=== PATIENT | female | born 1990 | race Caucasian/White ===

== ENCOUNTER → 2016-07-09 | Outpatient (CLI) | payer OTHER ==
[~2016-07-09] MED LIST: ANUSOL1 EACH PO; BACTRIM DS 8001 TA1 PO; CIPRO500 MG PO; Fioricet 325 MG1 TAB PO; IBU-6600 MG PO; KEFLEX500 MG PO; MULTIPLE VITAMI1 CAP PO; NKHM; VICODIN 5/500 505 MG PO
[2016-07-09 11:42] LABS: HEMATOCRIT 38.6 % (37.0-47.0); HEMOGLOBIN 12.7 g/dl (12.0-16.0); MEAN CELL VOLUME 90.6 fl (81.0-99.0); MEAN CORPUSCULAR HGB 29.8 pg (27.0-31.0); MEAN CORPUSCULAR HGB CONC 32.9 g/dl (33.0-37.0); MEAN PLATELET VOLUME 10.5 fl (9.6-12.3); RED BLOOD COUNT 4.26 10*6/uL (4.10-5.10); RED CELL DISTRI WIDTH 12.1 % (0-14.5); WHITE BLOOD COUNT 4.7 10*3/uL (4.8-10.8)
[2016-07-09 12:19] LABS: ALBUMIN 4.2 gm/dl (3.1-4.5); ALKALINE PHOSPHATASE 78 U/L (45-117); BILIRUBIN, TOTAL 0.5 mg/dl (0.2-1.0); BUN 11 mg/dl (7-24); CARBON DIOXIDE 31 mmol/L (21-32); CHLORIDE 104 mmol/L (98-107); CHOLESTEROL 110 mg/dL (<200); EST GLOM FILT AFRICAN AMERICAN > 60 ml/min; GLUCOSE 77 mg/dL (65-99); HDL CHOLESTEROL 54 mg/dl (40-60); LDL CHOLESTEROL 47 mg/dL (9-159); POTASSIUM 3.2 mmol/L (3.5-5.1); SGOT/AST 12 IU/L (3-35); SGPT/ALT 16 U/L (12-78); SODIUM 140 mmol/L (136-145); TRIGLYCERIDES 44 mg/dl (<150); VLDL CHOLESTEROL 9 mg/dL (6-40)
== END | disposition home or self-care (01) ==
LOC: LAB 11:21
PROVIDERS: Family Medicine
DX: Z13.220 Encounter for screening for lipoid disorders (principal); E55.9 Vitamin D deficiency, unspecified; R53.83 Other fatigue

== ENCOUNTER 2016-07-22 22:56 | Emergency (ER) | payer OTHER ==
[~2016-07-22] VITALS: Ht 160 cm; Wt 50.8 kg
[2016-07-22] MEDS ORDERED: POTASSIUM99 MG PO (23:18)
[2016-07-22] MEDS ORDERED: VITAMIN D5000 I3 PO (23:19)
[2016-07-22] MEDS ORDERED: CEPHALEXIN500 M1 PO (23:50)
== END 2016-07-23 00:05 | disposition home or self-care (01) ==
LOC: ED 22:56
DX: S31.41XA Laceration without foreign body of vagina and vulva, initial encounter (principal); F17.200 Nicotine dependence, unspecified, uncomplicated; X58.XXXA Exposure to other specified factors, initial encounter; Y93.E8 Activity, other personal hygiene; Y92.009 Unspecified place in unspecified non-institutional (private) residence as the place of occurrence of the external cause; Y99.8 Other external cause status

== ENCOUNTER → 2019-09-28 | Outpatient (CLI) | payer BC ==
[~2019-09-28] MED LIST changes: +CEPHALEXIN500 M1 PO; +POTASSIUM99 MG PO; +VITAMIN D5000 I3 PO
[2019-09-28 11:48] LABS: HEMATOCRIT 42.4 % (37.0-47.0); MEAN CELL VOLUME 95.5 fl (81.0-99.0); MEAN CORPUSCULAR HGB 30.6 pg (27.0-31.0); MEAN CORPUSCULAR HGB CONC 32.1 g/dl (33.0-37.0); MEAN PLATELET VOLUME 10.6 fl (9.6-12.3); RED BLOOD COUNT 4.44 10*6/uL (4.10-5.10); RED CELL DISTRI WIDTH 12.5 % (0-14.5); WHITE BLOOD COUNT 7.5 10*3/uL (4.8-10.8)
[2019-09-28 12:13] LABS: ALBUMIN 4.1 gm/dl (3.1-4.5); ALKALINE PHOSPHATASE 66 U/L (45-117); BUN 11 mg/dl (7-24); CHLORIDE 107 mmol/L (98-107); CHOLESTEROL 142 mg/dL (<200); CREATININE 0.71 mg/dL (0.55-1.02); HDL CHOLESTEROL 54 mg/dl (40-60); LDL CHOLESTEROL 74 mg/dL (9-159); POTASSIUM 4.2 mmol/L (3.5-5.1); SGOT/AST 11 IU/L (3-35); SGPT/ALT 22 U/L (12-78); SODIUM 138 mmol/L (136-145); TOTAL PROTEIN 7.1 gm/dL (6.4-8.2); TRIGLYCERIDES 72 mg/dl (<150); VLDL CHOLESTEROL 14 mg/dL (6-40)
== END | disposition home or self-care (01) ==
LOC: LAB 11:16
PROVIDERS: Nurse Practitioner Family
DX: Z13.220 Encounter for screening for lipoid disorders (principal); R53.83 Other fatigue

== ENCOUNTER → 2019-10-28 | Outpatient (CLI) | payer OTHER ==
[2019-10-28 10:18] LABS: ALBUMIN 3.9 gm/dl (3.1-4.5); BUN 12 mg/dl (7-24); CHLORIDE 111 mmol/L (98-107); CREATININE 0.73 mg/dL (0.55-1.02); POTASSIUM 3.9 mmol/L (3.5-5.1); SGOT/AST 13 IU/L (3-35); SGPT/ALT 21 U/L (12-78); SODIUM 142 mmol/L (136-145); TOTAL PROTEIN 6.9 gm/dL (6.4-8.2)
[2019-10-28 10:19] LABS: ALKALINE PHOSPHATASE 79 U/L (45-117)
== END | disposition home or self-care (01) ==
LOC: LAB 09:35
PROVIDERS: Family Medicine
DX: B35.1 Tinea unguium (principal)

== ENCOUNTER → 2019-12-30 | Outpatient (CLI) | payer OTHER ==
[2019-12-30 14:24] LABS: FREE T4 1.02 ng/dl (0.76-1.46)
[2019-12-30 14:29] LABS: THYROID STIM HORMONE (HS) 0.724 uIU/ml (0.358-4.75)
[2019-12-31 05:08] LABS: FOLLICLE STIMULATING HORMONE 8.3 mIU/mL (.); LUTEINIZING HORMONE 53.2 mIU/mL (.)
== END | disposition home or self-care (01) ==
LOC: LAB 13:31
PROVIDERS: ATTEND Family Medicine
DX: R06.02 Shortness of breath (principal); R53.83 Other fatigue; F41.1 Generalized anxiety disorder

== ENCOUNTER → 2020-03-28 | Outpatient (CLI) | payer OTHER | END | disposition home or self-care (01) | LOC: US 13:30 | PROVIDERS: ATTEND Nurse Practitioner Women's Health | DX: N83.02 Follicular cyst of left ovary (principal); N88.8 Other specified noninflammatory disorders of cervix uteri; N94.10 Unspecified dyspareunia; Z87.42 Personal history of other diseases of the female genital tract ==

== ENCOUNTER → 2020-06-10 | Outpatient (CLI) | payer OTHER | END | disposition home or self-care (01) | LOC: LAB 09:00 | PROVIDERS: ATTEND Internal Medicine Gastroenterology | DX: K58.1 Irritable bowel syndrome with constipation (principal) ==

== ENCOUNTER → 2020-06-28 | Outpatient (CLI) | payer OTHER ==
[2020-06-28 09:58] LABS: HEMATOCRIT 38.5 % (37.0-47.0); MEAN CELL VOLUME 93.2 fl (81.0-99.0); MEAN CORPUSCULAR HGB 30.5 pg (27.0-31.0); MEAN CORPUSCULAR HGB CONC 32.7 g/dl (33.0-37.0); MEAN PLATELET VOLUME 10.1 fl (9.6-12.3); RED BLOOD COUNT 4.13 10*6/uL (4.10-5.10); RED CELL DISTRI WIDTH 12.6 % (0-14.5); WHITE BLOOD COUNT 6.4 10*3/uL (4.8-10.8)
[2020-06-28 10:37] LABS: ALKALINE PHOSPHATASE 85 U/L (45-117); BUN 16 mg/dl (7-24); CHLORIDE 106 mmol/L (98-107); CHOLESTEROL 140 mg/dL (<200); CREATININE 0.76 mg/dL (0.55-1.02); FREE T4 1.15 ng/dl (0.76-1.46); HDL CHOLESTEROL 56 mg/dl (40-60); LDL CHOLESTEROL 71 mg/dL (9-159); POTASSIUM 3.8 mmol/L (3.5-5.1); SGOT/AST 11 IU/L (3-35); SGPT/ALT 24 U/L (12-78); SODIUM 138 mmol/L (136-145); TOTAL PROTEIN 7.3 gm/dL (6.4-8.2); TRIGLYCERIDES 64 mg/dl (<150); VLDL CHOLESTEROL 13 mg/dL (6-40)
[2020-06-28 10:43] LABS: THYROID STIM HORMONE (HS) 0.927 uIU/ml (0.358-4.75)
[2020-06-28 13:00] LABS: VITAMIN D, 25-HYDROXY 56.3 ng/mL (30-100)
[2020-06-30 16:08] LABS: CORN, IGE <0.10 kU/L (Class 0); MILK (COW), IGE <0.10 kU/L (Class 0); PEANUT, IGE <0.10 kU/L (Class 0); SOYBEAN, IGE <0.10 kU/L (Class 0); WHEAT, IGE <0.10 kU/L (Class 0)
[2020-07-01 11:08] LABS: ALTERNARIA ALTERNATA, IGE <0.10 kU/L (Class 0); AMERICAN ELM, IGE <0.10 kU/L (Class 0); ASPERGILLUS FUMIGATU, IGE <0.10 kU/L (Class 0); BERMUDA GRASS, IGE <0.10 kU/L (Class 0); BIRCH, COMMON SILVER IGE <0.10 kU/L (Class 0); CLADOSPORIUM HERBARU, IGE <0.10 kU/L (Class 0); D FARINAE MITE <0.10 kU/L (Class 0); D PTERONYSSINUS <0.10 kU/L (Class 0); DOG DANDER, IGE <0.10 kU/L (Class 0); IMMUNOGLOBULIN IgE 4 IU/mL (6-495); MAPLE LEAF SYCAMORE, IGE <0.10 kU/L (Class 0); MAPLE/BOX ELDER, IGE <0.10 kU/L (Class 0); MOUSE URINE IGE <0.10 kU/L (Class 0); PENICILLIUM CHRYSOGENUM, IGE <0.10 kU/L (Class 0); ROUGH PIGWEED, IGE <0.10 kU/L (Class 0); SHEEP SORREL (DOCK), IGE <0.10 kU/L (Class 0); SHORT RAGWEED, IGE <0.10 kU/L (Class 0); TIMOTHY, IGE <0.10 kU/L (Class 0); WALNUT TREE, IGE <0.10 kU/L (Class 0); WHITE ASH, IGE <0.10 kU/L (Class 0); WHITE MULBERRY, IGE <0.10 kU/L (Class 0); WHITE OAK, IGE <0.10 kU/L (Class 0)
[2020-07-02 18:07] LABS: TESTOSTERONE FREE, (DIRECT) 1.9 pg/mL (0.0-4.2)
== END | disposition home or self-care (01) ==
LOC: LAB 09:28
PROVIDERS: ATTEND Family Medicine
DX: Z13.220 Encounter for screening for lipoid disorders (principal); E55.9 Vitamin D deficiency, unspecified; R53.83 Other fatigue; L50.9 Urticaria, unspecified; N92.0 Excessive and frequent menstruation with regular cycle; L68.0 Hirsutism; L29.9 Pruritus, unspecified

== ENCOUNTER → 2021-01-20 | Outpatient (CLI) | payer OTHER | END | disposition home or self-care (01) | LOC: COVID19 15:45 | PROVIDERS: ATTEND Podiatrist Foot & Ankle Surgery | DX: U07.1 COVID-19 (principal) ==

== ENCOUNTER 2021-01-24 09:54 | Emergency (ER) | payer OTHER ==
[~2021-01-24] VITALS: Wt 47.6 kg
[2021-01-24 10:41] LABS: BASO % 0.3 % (0.0-1.0); EOS # 0.1 10*3/uL (0.0-0.4); EOS % 0.9 % (1.0-4.0); HEMATOCRIT 37.4 % (37.0-47.0); LYMPH # 1.7 10*3/uL (1.3-4.4); LYMPH % 21.5 % (27.0-41.0); MEAN CELL VOLUME 89.7 fl (81.0-99.0); MEAN CORPUSCULAR HGB 29.7 pg (27.0-31.0); MEAN CORPUSCULAR HGB CONC 33.2 g/dl (33.0-37.0); MONO # 0.5 10*3/uL (0.1-1.0); MONO % 6.6 % (3.0-9.0); NEUT # 5.4 10*3/uL (2.3-7.9); NEUT % 70.4 % (47.0-73.0); PLATELET COUNT AUTOMATED 352 10*3/uL (130-400); RED BLOOD COUNT 4.17 10*6/uL (4.10-5.10); RED CELL DISTRI WIDTH 11.9 % (0-14.5); WHITE BLOOD COUNT 7.7 10*3/uL (4.8-10.8)
[2021-01-24 10:55] LABS: ALBUMIN 3.9 gm/dl (3.1-4.5); ALKALINE PHOSPHATASE 76 U/L (45-117); BUN 13 mg/dl (7-24); CHLORIDE 107 mmol/L (98-107); CREATININE 0.89 mg/dL (0.55-1.02); LIPASE 56 U/L (73-393); POTASSIUM 3.3 mmol/L (3.5-5.1); SGOT/AST 14 IU/L (3-35); SGPT/ALT 22 U/L (12-78); SODIUM 139 mmol/L (136-145); TOTAL PROTEIN 6.8 gm/dL (6.4-8.2)
[2021-01-24 10:57] LABS: BETA-HCG, QUANT < 1.0 mIU/mL (1-3)
[2021-01-24 11:37] LABS: BILIRUBIN Negative (Negative); BLOOD 3+ (Negative); CLARITY Clear (Clear); COLOR Yellow (Yellow); GLUCOSE Negative (Negative); KETONE Negative (Negative); LEUKO ESTERASE Negative (Negative); NITRITE Negative (Negative); UROBILINOGEN 0.2 E.U./dl (0.0-1.0)
[2021-01-24 11:42] LABS: PH 8.5 (4.5-8.0)
[2021-01-24 11:48] LABS: BACTERIA 1+; RBC TNTC rbc/hpf (0-2)
== END 2021-01-24 16:22 | disposition home or self-care (01) ==
LOC: ED 09:54
PROVIDERS: Emergency Medicine
DX: R10.31 Right lower quadrant pain (principal); Z79.899 Other long term (current) drug therapy

== ENCOUNTER → 2021-11-20 | Outpatient (CLI) | payer OTHER ==
[2021-11-20 15:23] LABS: BASO % 0.6 % (0.0-1.0); EOS # 0.1 10*3/uL (0.0-0.4); EOS % 1.2 % (1.0-4.0); HEMATOCRIT 40.1 % (37.0-47.0); LYMPH # 2.1 10*3/uL (1.3-4.4); LYMPH % 32.8 % (27.0-41.0); MEAN CELL VOLUME 90.9 fl (81.0-99.0); MEAN CORPUSCULAR HGB 29.9 pg (27.0-31.0); MEAN CORPUSCULAR HGB CONC 32.9 g/dl (33.0-37.0); MEAN PLATELET VOLUME 10.1 fl (9.6-12.3); MONO # 0.5 10*3/uL (0.1-1.0); MONO % 6.9 % (3.0-9.0); NEUT # 3.8 10*3/uL (2.3-7.9); NEUT % 58.3 % (47.0-73.0); PLATELET COUNT AUTOMATED 319 10*3/uL (130-400); RED BLOOD COUNT 4.41 10*6/uL (4.10-5.10); WHITE BLOOD COUNT 6.5 10*3/uL (4.8-10.8)
[2021-11-20 15:42] LABS: ALKALINE PHOSPHATASE 74 U/L (45-117); BUN 11 mg/dl (7-24); CHLORIDE 105 mmol/L (98-107); FREE T4 1.17 ng/dl (0.76-1.46); IRON 153 ug/dL (50-170); POTASSIUM 3.7 mmol/L (3.5-5.1); SGOT/AST 15 IU/L (3-35); SGPT/ALT 16 U/L (12-78); SODIUM 136 mmol/L (136-145); TOTAL PROTEIN 7.6 gm/dL (6.4-8.2)
[2021-11-20 15:46] LABS: THYROID STIM HORMONE (HS) 0.518 uIU/ml (0.358-4.75)
[2021-11-21 07:06] LABS: HEPATITIS B SURFACE AB Reactive (.); HEPATITIS B SURFACE AG Negative (Negative)
[2021-11-22 07:06] LABS: BETA-2 MICROGLOBULIN 1.3 mg/L (0.6-2.4)
== END | disposition home or self-care (01) ==
LOC: LAB 14:48
PROVIDERS: ATTEND Nurse Practitioner Family
DX: R59.1 Generalized enlarged lymph nodes (principal); R53.83 Other fatigue; R63.4 Abnormal weight loss; R61 Generalized hyperhidrosis

== ENCOUNTER → 2024-11-06 | Outpatient (CLI) | payer BC ==
[2024-11-06 15:45] LABS: BASO # 0.0 10*3/uL (0.0-0.1); BASO % 0.4 % (0.0-1.0); EOS # 0.1 10*3/uL (0.0-0.4); EOS % 0.9 % (1.0-4.0); MEAN CELL VOLUME 92.0 fl (81.0-99.0); MEAN CORPUSCULAR HGB 29.5 pg (27.0-31.0); MEAN PLATELET VOLUME 10.8 fl (9.6-12.3); MONO # 0.6 10*3/uL (0.1-1.0); MONO % 8.1 % (3.0-9.0); NEUT # 4.4 10*3/uL (2.3-7.9); NEUT % 62.7 % (47.0-73.0); NUCLEATED RED BLOOD CELL 0.0 % (0.0-0.0); NUCLEATED RED BLOOD CELL 0.0 10*3/uL (0.0-0.0); PLATELET COUNT AUTOMATED 316 10*3/uL (130-400); RED CELL DISTRI WIDTH 12.9 % (0-14.5)
[2024-11-06 16:03] LABS: BUN 13 mg/dl (9-23); LDL CHOLESTEROL 72 mg/dL (9-159); SGPT/ALT 11 U/L (5-49)
== END ==
LOC: LAB 13:33
PROVIDERS: ATTEND Nurse Practitioner Family
DX: L71.9 Rosacea, unspecified (principal); G43.909 Migraine, unspecified, not intractable, without status migrainosus; F90.9 Attention-deficit hyperactivity disorder, unspecified type; H53.9 Unspecified visual disturbance; Z13.220 Encounter for screening for lipoid disorders; Z13.29 Encounter for screening for other suspected endocrine disorder; Z76.89 Persons encountering health services in other specified circumstances

== ENCOUNTER → 2024-11-19 | Outpatient (CLI) | payer BC | END | disposition home or self-care (01) | LOC: US 01:09 | PROVIDERS: ATTEND Nurse Practitioner Women's Health | DX: N63.25 Unspecified lump in the left breast, overlapping quadrants (principal); N64.89 Other specified disorders of breast ==